=== PATIENT | female | born 1965 | race Caucasian/White ===

== ENCOUNTER → 2017-01-18 | Day surgery (SDC) | payer OTHER ==
--- NOTE | 2017-01-17 18:49 | PCM.HPANE ---
Patient Data Date of Service: Jan 18, 2017 Surgeon Admitting Provider: Attending Provider:Arpita Kong MD Primary Care Physician:Ning Obando PA-C Other Provider:Hector Gavin Anesthesia Reason for Visit Hydrosalpinx,Uterine Leiomyoma,Retained Iud Ht/WT & BMI Height (Feet): 5 Height (Inches): 6 Weight (Kilograms): 76.385 Body Mass Index 27.00 Allergies Coded Allergies: No Known Allergies (Verified , 01/16/17) Past Anesthesia History Anesthesia History: Denies:: Anesthesia Reactions, Fam Anesthesia Reaction, Fam Malignant Hypertherm, Malignant Hyperthermia Diabetes History Hx Diabetes?: No MRSA MRSA: No Medications Hypertension Medication: Yes (HCTZ) Reported Medications Ibuprofen 200 Mg [id number] Mg PO QID PRN For Pain Ref 0 01/18/17 Multivitamin (Multivitamins)1 Each Capsule1 Each PO DAILY 01/16/17 Cholecalciferol (Vitamin D3) (Vitamin D)1,000 Unit Tablet1,000 Unit PO DAILY #1 BOTTLE Ref 0 01/16/17 Triamcinolone Acet (Triamcinolone Acetonide Cream)1 Applic/0.25 Gm Cr1 Applic EXT BID #60 GM Ref 0 01/16/17 [mirena IUD] No Conflict Check20 Mg VAGINAL 01/16/17 Hydrochlorothiazide 25 Mg Qhsyyv39.5-25 Mg PO DAILY 30 Days Ref 0 01/16/17 Discontinued Reported Medications Cholecalciferol (Vitamin D3) (Vitamin D)1,000 Unit Tablet1,000 Unit PO DAILY #1 BOTTLE Ref 0 01/16/17 Triamcinolone Acet (Triamcinolone Acetonide Cream)1 Applic/0.25 Gm Cr1 Applic EXT BID #60 GM Ref 0 0.5% 01/16/17 Potassium Chloride 10 Meq Tab.er.prt10 Meq PO DAILY 30 Days Ref 0 TAKE WITH FOOD 01/16/17 Multivitamin (Multi Vitamin Daily)1 Each Tablet1 Each PO DAILY 30 Days Ref 0 01/16/17 [Mirena Iud] No Conflict Check Vaginal 20MG/24H 01/16/17 Hydrochlorothiazide 12.5 Mg Tzuxqwz41.5 Mg PO DAILY 30 Days Ref 0 01/16/17 No Historical Medication Ea Ref 0 01/13/09 History History of ENT Problems?: No HEENT History: Denies:: Cataracts Glaucoma Hearing Problem Denture Type: None Teeth Condition: Within Normal Limits Hx of Heart Problems?: Yes Cardiovascular History: Positive for:: Hypertension Hx of Respiratory Problem?: No Respiratory History: Positive for:: Pneumonia (20 yrs ago) Denies:: Pulmonary Embolism Tuberculosis Use of C-PAP Machine Use of Inhalers / NEBS Hx Neurologic Problems?: No Neurological History: Denies:: Alzheimer's Disease CVA Dementia Dizziness Headaches Multiple Sclerosis Parkinson's Disease Seizures TIA Hx of GI Problems?: Yes Other GI Pertinent History: S/P APPY/DRNG MULT. PELVIC ABCESSES Hx of Problems?: No Genitourinary History: Denies:: Urinary Tract Infection HX of Peritoneal Dialysis: No Female Hx: Denies:: Currently (MIRENA IUD S/P D&C,DX LAP,C/S) Endometriosis Pelvic Inflammatory Problems with Breasts? Skin History: Denies:: History Skin Disorders? Pressure Ulcers Hx Musculoskeletal Problems?: No Musculoskeletal History: Positive for:: Back Injury (low back pain) Denies:: Degenerative Joint Fibromyalgia Joint Replacement Musculoskeletal Trauma Myasthenia Gravis Osteoarthritis Rheumatoid Arthritis Systemic Lupus Hx of Psycho/Social Problems?: No Hx Surgeries?: Yes (C/S,D&C,DX LAP,APPY W/ DRNG OF MULT. ) Hx Any Other Health Problems?: Yes Other History: Positive for:: Hospitalization ([facility]) Denies:: Cancer Endocrine Disease Thyroid Disease History Blood Transfusions: Positive for:: Accept Blood Products? Denies:: Blood Transfusions Hx Diabetes: No Hx Alcohol Use: YesAlcoholic Drinks Per Day: one beer or glass a wine a dayHx Substance Use: NoHave You Smoked inLast 12 mo: No Stop/Bang S-Snoring: Do You Snore Loudly: No T-Tired: feel tired, fatigued: No O-Obsered: Observed not breath: No P-Blood Pressure: treated: Yes B- Body Mass Index > 35 kg/m2: No A- Age over 50: Yes N- Neck Large Circumference: No G- Gender Male: No LEVI Total Score: 2 LEVI Risk Assessment: Low Risk, <3 Yes Risk Assessment Category Category 1A: Patient has history of documented sleep apnea, and HAS NOT received any narcotic, sedative or anesthesia administration during this stay. Category 1B: Patient has history of documented sleep apnea, and HAS received any narcotic , sedative or anesthesia administration during this stay Category 2: Patient has SUSPECTED Obstructive Sleep Apnea, and HAS received any narcotic , sedative or anesthesia administration during this stay. Category 3: Patient has SUSPECTED Obstructive Sleep Apnea and HAS NOT received narcotic, sedative or anesthesia administration during this stay. Category 4: Outpatient in Procedural Areas with known sleep apnea or who screen positive for High Risk via the STOP/BANG questionnaire. Exam Exam General Appearance: Alert, Oriented X3 HEENT/AIRWAY: MP 1 Lungs: Clear to Auscultation Heart: Exam Unremarkable Plan Impression Patient chart reviewed, patient interviewed and anesthestic plan with risks, benefits, and alternatives discussed, and informed consent obtained. ASA Physical Status: ASA2 Mod Systemic Disease Anesthetic Plan: GA Bene/Risks/Altern/Consents: Yes HP Complete Prior to Induction: Yes Jeff Blount MD Jan 17, 2017 18:49 Aaron James MD Jan 18, 2017 08:32
[2017-01-18] VITALS (11 sets, daily range): BP systolic 119–177; BP diastolic 73–96; PULSE 88–112; RESP 14–19; O2SAT 96–100
[~2017-01-18] VITALS: Ht 167.6 cm; Wt 75.2 kg
[~2017-01-18] MED LIST: CHOL100043 PO; Dexamethasone 4 mg/mL Inj IVPUSH PRN; Dexamethasone 4 mg/mL Inj ONE; EPHEDrine Sulfate 50 mg/mL Inj IVPUSH PRN; HYDR25TA4 PO; HYDROmorphone 1 mg/mL Inj IVPUSH PRN; IBUP200C PO; KEN25CR EXT; Lactated Ringer's 1,000 ML IV SCH; Lactated Ringer's 500 ML IV PRN; MULT1CAP33 PO; MetoCLOpramide 5 mg/mL 2 mL Inj IVPUSH PRN; Ondansetron 2 mg/mL 2 mL Inj IVPUSH PRN; Ondansetron 2 mg/mL 2 mL Inj ONE; Phenylephrine 10,000 mCg/mL Inj IVPUSH PRN; Propofol 10,000 mCg/mL 20 mL Inj ONE; Succinylcholine Chloride 20 mg/mL 5 mL Inj ONE; fentaNYL-PF 50 mCg/mL 2 mL Inj IVPUSH PRN; mirena IUD VAGINAL; oxyCODONE-Acetamin 5-325 mg Tablet PO PRN
[2017-01-18] MEDS: Lactated Ringer's 1,000 ML IV SCH ×2 (06:10→07:32)
--- NOTE | 2017-01-18 09:15 | PCM.DIGYN ---
Surgical Discharge Instruction Dates of Hospitalization Date of Hospital Admission Providers Admitting Physician: Primary Care Physician: Ning Obando PA-C Attending Physician: Arpita Kong MD Diagnosis at Time of Discharge Diagnosis at time of discharge embeded IUD uterine fibroid thick endometrium Post-operative diagnosis embeded IUD uterine fibroid thick endometrium Problems: Diet Discharge Diet: No restrictions Activity Discharge Activity-General: Try not to overdue, Be up and about, Balance rest and activity, Activity as pain allows, Activity as energy allows, No driving while taking narcotic Dressing and Incisional Care Hygiene: May shower, NO bathtub, hot tub or whirlpool Additional Instructions Discharge Instructions Please call office if heavy vaignal bleeding, severe abdominal pain, foul smelling discharge, fever more than 100.4 or short of breath Follow Up Plan Follow Up Plan 2 weeks after procedure with Dr Kong Follow-up Provider (F9): Arpita Kong MD Follow-up appointment: Weeks (2) Call your provider for: Fever, Chills, Shortness of breath, Heavy vaginal bleeding, Increasing pain Arpita Kong MD Jan 18, 2017 09:15
--- NOTE | 2017-01-18 10:48 | PCM.ANEP1 ---
Post Anesthesia PACU Phase 1 Assessment Date of Service: Jan 18, 2017 Vital Signs Vital Signs Date Time Temp Pulse Resp B/P Pulse Ox O2 Delivery O2 Flow Rate FiO2 01/18/17 10:30 92 19 177/93 99 Room Air 01/18/17 09:36 91 18 138/94 98 Room Air 01/18/17 09:30 98 15 141/90 97 Room Air 01/18/17 09:25 36.1 107 15 135/91 96 Room Air 01/18/17 09:20 112 15 144/93 98 Room Air 01/18/17 09:15 88 17 129/81 100 Simple Mask 8 01/18/17 09:10 89 18 124/79 100 Simple Mask 8 01/18/17 09:05 93 19 119/73 98 Simple Mask 8 01/18/17 09:00 36.0 92 14 139/92 96 Simple Mask 8 01/18/17 06:45 36.0 96 16 153/96 99 Room Air 01/18/17 06:30 96 16 153/96 99 Room Air Anesthetic Administered: GA Level of Alertness: Awake, talking Pain: No Nausea or Vomiting: No CV Function & Hydration Stable: Yes Airway Device: Oxygen Delivery: Room Air Lungs: Clear to Auscultation PACU Phase 2 Assessment Complications: No Follow up Care: N/A Patient Instructions Provided: N/A Aaron James MD Jan 18, 2017 10:48
--- NOTE | 2017-01-18 11:53 | OP ---
[address] [address] OPERATIVE REPORT PATIENT: NANCY ALDRIDGE : 1965 MR#: [id number] ADMIT: 01/18/2017 JOB ID: [id number] DATE OF SURGERY: 01/18/2017 SURGEON: Arpita Kong M.D. PREOPERATIVE DIAGNOSIS(ES): Intrauterine device complication, failed removal of intrauterine device in the office. POSTOPERATIVE DIAGNOSIS(ES): Embedded intrauterine device, uterine fibroids and thick endometrium. PROCEDURES PERFORMED: Hysteroscopy, intrauterine device removal, dilatation and curettage. INDICATION OF PROCEDURE: IUD complications, failed removal in office. This is a 51-year-old female. She had a Mirena IUD placed seven years ago for heavy vaginal bleeding. IUD controlled her symptoms well. She has not any vaginal bleeding. She came into office for IUD removal. Office removal was failed and scheduled for office hysteroscopy IUD removal. During the procedure, the skin could not be well seen. Imaging down the ultrasound cannot confirm the IUD inside her uterine cavity and pelvic abdominal x-ray confirmed the IUD in the pelvis, likely the position where the uterus is and also there was notice of hydrosalpinx of the fallopian tube. The plan was to do a hysteroscopy IUD removal in the OR, and if laparoscopy needed for the procedure, will do a laparoscopy IUD removal and also bilateral salpingectomy. If the laparoscopy is not needed for IUD removal, we will not do bilateral salpingectomy. Discussed with patient about the benefits, risks, alternatives of the procedure. The patient understood there is risk of infection, bleeding, perforation of the uterus, injury to the organs around the uterus including but not limited to the bladder, ureters, major vessels, nerves, and bowels. Informed consent signed. PROCEDURE IN DETAIL: The patient was transferred to operating room. After general anesthesia was noted to be adequate, she was placed in the dorsal lithotomy position. She was prepared and draped as normal sterile fashion. 50 cc of urine drained by straight cath. Bimanual examination was performed under anesthesia and noticed the uterus about 10-12 week size, irregular, likely due to uterine fibroid which was also confirmed by ultrasound. Speculum inserted to vagina to expose the cervix. The cervix was grasped by a single-tooth tenaculum. The uterus was sounded to 10 cm. The cervix was gently dilated to 7 mm. A Davey scope was inserted into the uterine cavity. The uterine cavity was evaluated and noticed the cavity was generally enlarged. There was an intramural fibroid noticed, especially on the left vaginal protruding to the uterine cavity and also noticed thick endometrium. The thick endometrium is not universal, only on part of the uterine cavity. During the examination, the IUD string was noticed close to the right cornu of the uterus and half of the IUD could be seen by the scope. At this time, a hysteroscopy grasper grasped the string and gently pulled down and the IUD was removed completely. At this time, the decision was made to do an endometrium curettage. It was down both by the Davey scope and by curettage and specimens sent to pathology. The patient tolerated the procedure well. All instrument, needles, laps and gauzes counted correct twice. Hemostasis confirmed. The fluid deficit was 280 cc. Blood loss was about 20 cc. The patient was transferred to recovery room in stable condition. Laparoscopy was not performed.
--- NOTE | 2017-01-18 12:15 | DIS ---
[address] [address] DISCHARGE SUMMARY PATIENT: NANCY ALDRIDGE : 1965 MR#: [id number] ADMIT: 01/18/2017 JOB ID: [id number] DIS: 01/18/2017 A 31-year-old female coming in today for a scheduled hysteroscopy, IUD removal, possible laparoscopy, bilateral salpingectomy. The procedure was done with a hysteroscopy and IUD was removed and sharp curettage was also performed. PLAN: To discharge patient home when she is able to ambulate, void and when her pain is well controlled. She is instructed to followup in the office two weeks after the procedure. Motrin 600 mg, 30 pills and Percocet 5/325, 10 pills, prescribed. The patient is instructed that if there is heavy vaginal bleeding, severe abdominal pain, foul-smelling discharge, fever more than 100.4, she should call office or go to the ED for evaluation.
--- NOTE | 2017-01-18 13:30 | PCM.ANEP1 ---
Post Anesthesia PACU Phase 1 Assessment Vital Signs Vital Signs Date Time Temp Pulse Resp B/P Pulse Ox O2 Delivery O2 Flow Rate FiO2 01/18/17 10:48 Room Air 01/18/17 10:30 92 19 177/93 99 Room Air 01/18/17 09:36 91 18 138/94 98 Room Air 01/18/17 09:30 98 15 141/90 97 Room Air 01/18/17 09:25 36.1 107 15 135/91 96 Room Air 01/18/17 09:20 112 15 144/93 98 Room Air 01/18/17 09:15 88 17 129/81 100 Simple Mask 8 01/18/17 09:10 89 18 124/79 100 Simple Mask 8 01/18/17 09:05 93 19 119/73 98 Simple Mask 8 01/18/17 09:00 36.0 92 14 139/92 96 Simple Mask 8 01/18/17 06:45 36.0 96 16 153/96 99 Room Air 01/18/17 06:30 96 16 153/96 99 Room Air Anesthetic Administered: GA Level of Alertness: Awake, talking Pain: No Nausea or Vomiting: No CV Function & Hydration Stable: Yes Airway Device: Oxygen Delivery: Room Air Lungs: Clear to Auscultation PACU Phase 2 Assessment Complications: No Follow up Care: N/A Patient Instructions Provided: N/A Aaron James MD Jan 18, 2017 13:30
--- NOTE | 2017-01-21 15:59 | PATH ---
SURGICAL PATHOLOGY Attending Physician:Arpita Kong MD CASE STATUS: Signed Out PATIENT NAME: NANCY ALDRIDGE PID: [id number] : 1965 DATE COLLECTED:01/18/2017 21:04 SPECIMEN: Endometrium, Biopsy CLINICAL HISTORY: IMMBEDDED IUD 1). ENDOMETRIUM FINAL DIAGNOSIS: Endometrium, Biopsy: Inflamed, decidualized endometrium with separate fragment of benign endometrial polyp. No evidence of neoplasia or hyperplasia. ICD10: Z30.432 N84.0 GROSS DESCRIPTION: The specimen is received in one formalin filled container labeled with the patient's name, sublabeled "endometrium" and consists of a 2.0 cc aggregate of tissue, mucoid material and blood which is filtered and entirely submitted in one cassette. 01/18/2017IA ICD-9 CODES: CPT CODES: 1: 24959 Electronically Signed Out Nakia Sanchez MD [facility] Pathology [facility] [address], [place] [address] Technical component performed at [facility], [facility] [address], [address]
== END | disposition home or self-care (01) ==
LOC: SAS 06:05
PROVIDERS: ATTEND Obstetrics & Gynecology
DX: N70.11 Chronic salpingitis (principal); T83.39XA Other mechanical complication of intrauterine contraceptive device, initial encounter; D25.1 Intramural leiomyoma of uterus; I10 Essential (primary) hypertension; Z87.442 Personal history of urinary calculi
CPT/HCPCS: 58301; 58558; J0330; J1100; J1885; J2250; J2405; J2704; J7120